=== PATIENT | male | born 1995 | race African-American/Black ===

== ENCOUNTER 2018-01-29 12:15 | Emergency (ER) | payer OTHER ==
[~2018-01-29] VITALS: Ht 182.9 cm; Wt 104.3 kg
[~2018-01-29 12:15] MED LIST: ACTICIN 5% CREA60 G1 TOP; IBUPROFEN 600600 M1 PO; NOHOMEMEDICATIONS; NORCO 5-325 TA1 EACH PO
[2018-01-29 12:21] VITALS: BP 144/67
== END 2018-01-29 12:49 | disposition home or self-care (01) ==
LOC: ER 12:15
DX: M54.9 Dorsalgia, unspecified (principal); Z87.891 Personal history of nicotine dependence

== ENCOUNTER 2018-02-09 05:55 | Emergency (ER) | payer OTHER ==
[~2018-02-09] VITALS: Ht 182.9 cm; Wt 107.5 kg
[2018-02-09 06:02] VITALS: BP 137/79
[2018-02-09 07:09] LABS: URINE BILIRUBIN NEGATIVE (Negative); URINE BLOOD NEGATIVE (Negative); URINE CLARITY CLEAR; URINE COLOR YELLOW; URINE GLUCOSE-RANDOM* NEGATIVE (Negative); URINE KETONES NEGATIVE (Negative); URINE LEUKOCYTES-REFLEX NEGATIVE (Negative); URINE NITRITE-REFLEX NEGATIVE (Negative); URINE PROTEIN (DIPSTICK) NEGATIVE (Negative); URINE SPECIFIC GRAVITY >= 1.030 (1.005-1.035); URINE UROBILINOGEN 0.2 E.U./dl (0.2-1.0)
[2018-02-09] MEDS ORDERED: IBUPROFEN 600600 M1 PO (07:17)
[2018-02-09] MEDS ORDERED: ZOFRAN4 MG PO (07:17)
== END 2018-02-09 07:27 | disposition home or self-care (01) ==
LOC: ER 05:55
PROVIDERS: Emergency Medicine
DX: B34.9 Viral infection, unspecified (principal); Z87.891 Personal history of nicotine dependence